=== PATIENT | female | born 1945 | race Caucasian/White ===

== ENCOUNTER 2022-03-12 15:03 | Outpatient (CLI) | payer MEDICARE, SELFPAY ==
[2022-03-12 17:34] LABS: Albumin* 4.4 g/dL (3.3-5.0); Chloride* 100 mmol/L (96-114); Potassium* 4.6 mmol/L (3.6-5.1); Sodium* 139 mmol/L (135-149)
[2022-03-12 17:37] LABS: Alanine Aminotransferase* 21 U/L (4-35); Alkaline Phosphatase* 63 U/L (40-150); Aspartate Amino Transferase* 31 U/L (12-35); Bilirubin Total* 0.6 mg/dL (0.1-1.5); Blood Urea Nitrogen* 25 mg/dL (7-30); Carbon Dioxide* 31 mmol/L (20-32); Creatinine* 1.3 mg/dL (0.5-1.5); Estimated Glomerular Filt Rate 43 ml/min; Glucose* 82 mg/dL (60-115); Total Protein* 6.9 g/dL (6.0-8.3)
[2022-03-12 17:38] LABS: Calcium* 10.2 mg/dL (8.4-10.6)
== END 2022-03-12 15:04 | disposition home or self-care (01) ==
PROVIDERS: PCP Family Medicine; Visit Provider Internal Medicine Cardiovascular Disease
DX: Z13.9 Encounter for screening, unspecified (principal)
CPT/HCPCS: 80053

== ENCOUNTER 2022-03-30 12:41 | Outpatient (CLI) | payer MEDICARE, SELFPAY ==
[2022-03-30 13:37] VITALS: BP 136/92; PULSE 89; RESP 16
--- NOTE | 2022-03-30 14:34 | PM.ST ---
Stress Test Note Date Date of test: 03/30/22 Providers Primary care provider: Hiren Thurston Stress test physician: Franklin Garces Stress Test Note Stress test ordered: Stress Echo Indication for test: Cardiomyopathy Results discussion: Very nice lady presents here for stress echo, after discussion the risks benefits side effects she would like to proceed pretest EKG shows normal sinus rhythm, poor R-wave progression is noted across the precordial leads, with some very mild ST wave depression of 0.5-1 mm noted inferiorly, and also laterally. Blood pressure elevated at 172/102. Patient is exercised for a total time following Wang protocol of 4 minutes 1 seconds, test is terminated because of shortness of breath and fatigue, during this test there is no specific ST wave changes suggestive of ischemia, there was no dysrhythmias noted, conditioning was felt to be moderate. Impression: Negative electrographic portion of stress echo, Follow up suggested: Await echo images these will be read by Cardiology, clinical correlation with these will be needed, she left this testing facility in good condition.
== END 2022-03-30 13:39 | disposition home or self-care (01) ==
PROVIDERS: PCP Family Medicine; Visit Provider Family Medicine
DX: I42.9 Cardiomyopathy, unspecified (principal)
CPT/HCPCS: 93016; 93325; 93351

== ENCOUNTER 2022-07-07 11:17 | Outpatient (CLI) | payer MEDICARE, SELFPAY | END 2022-07-07 11:18 | disposition home or self-care (01) | PROVIDERS: PCP Family Medicine; Visit Provider Family Medicine | DX: E66.9 Obesity, unspecified (principal); I10 Essential (primary) hypertension; E78.5 Hyperlipidemia, unspecified | CPT/HCPCS: 80061; 82607; 84439; 84443 ==

== ENCOUNTER 2023-05-24 12:52 | Outpatient (CLI) | payer MEDICARE, SELFPAY ==
--- NOTE | 2023-05-24 13:00 | CRLHL7_ITS ---
For Patients: As a result of the Century Cures Act, medical imaging exams and procedure reports are released immediately into your electronic medical record. You may view this report before your referring provider. If you have questions, please contact your health care provider. INDICATION: Low back pain. TECHNIQUE: Multiplanar multisequence noncontrast MR images of the lumbar spine. COMPARISON: None. FINDINGS: Mild leftward lumbar curvature. Straightened lumbar lordosis. No acute fracture. No T1 hypointense lesions. Normal conus terminates at L1. T12-L1: Moderate disc degeneration. Shallow posterior bulge. No spinal canal or neural foraminal narrowing. L1-2: Moderate disc degeneration. Shallow post disc bulge. Mild facet arthropathy. No spinal canal or neural foraminal narrowing. L2-3: Moderate disc degeneration and mild disc height loss. Posterior disc bulge. Moderately advanced facet arthropathy. Thickening ligamentum flavum. Bilateral facet effusions. Moderately severe spinal canal and right greater than left lateral recess stenosis. No neural foraminal narrowing. L3-4: Advanced disc degeneration and disc height loss. Mild vertebral body edema. Posterior disc bulging and endplate spondylitic ridging. Moderate facet arthropathy. Thickening of ligamentum flavum. Moderately severe spinal canal and right greater left lateral recess stenosis. Mild to moderate right without left neural foraminal narrowing. L4-5: Mild retrolisthesis. Advanced disc height loss. Posterior disc bulging and endplate spondylitic ridging. Moderate facet arthropathy. Bilateral facet effusions. Thickening ligamentum flavum. Moderate spinal canal narrowing. Severe left and moderately severe right lateral recess stenosis. [id number] left and mild right neural foraminal narrowing. L5-S1: Moderate disc degeneration. Shallow posterior disc bulge. Moderate facet arthropathy. No spinal canal narrowing. Mild left without right neural foraminal narrowing. Sacroiliac joint degenerative changes. IMPRESSION: 1. 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 2. At L3-4, moderately severe spinal canal and right greater than left lateral recess stenosis. Mild to moderate right neural foraminal narrowing. 3. At L4-5, moderate spinal canal narrowing. Severe left and moderately severe right lateral recess stenosis. Mild to moderate left neural foraminal narrowing. Dictated by Osman Bhandari MD @ 05/24/2023 3:42:20 PM (Electronically Signed)
== END 2023-05-24 12:53 | disposition home or self-care (01) ==
LOC: MRI 12:53
PROVIDERS: PCP Family Medicine; Visit Provider Physical Medicine & Rehabilitation
DX: M54.50 Low back pain, unspecified (principal); M48.061 Spinal stenosis, lumbar region without neurogenic claudication; M51.26 Other intervertebral disc displacement, lumbar region; M47.816 Spondylosis without myelopathy or radiculopathy, lumbar region
CPT/HCPCS: 72148

== ENCOUNTER 2023-10-12 11:20 | Outpatient (CLI) | payer MEDICARE, SELFPAY ==
--- NOTE | 2023-10-12 11:30 | CRLHL7_ITS ---
For Patients: As a result of the Century Cures Act, medical imaging exams and procedure reports are released immediately into your electronic medical record. You may view this report before your referring provider. If you have questions, please contact your health care provider. BILATERAL SCREENING MAMMOGRAM WITH COMPUTER-AIDED DETECTION AND TOMOSYNTHESIS TECHNIQUE: CC and MLO views were obtained. These mammographic images have been obtained using full-field digital technique. These mammographic images were interpreted with the benefit of computer-aided detection. Breast Tomosynthesis was used in this interpretation. COMPARISON FILM: 09/23/22, 09/22/21, 09/19/20. FINDINGS: The breasts are almost entirely fatty. IMPRESSION: There is no radiographic evidence for malignancy. ASSESSMENT: BI-RADS Category 1: Negative RECOMMENDATION: Routine screening mammogram in 1 year. A lay language report of this examination will be provided to the patient. Bryant Holt M.D. Diagnostic Radiologist [email or web address] SP/Dictated by: Bryant Holt MD @ 10/17/2023 10:27:00 AM (Electronically Signed)
== END 2023-10-12 11:21 | disposition home or self-care (01) ==
LOC: MAMMO 11:21
PROVIDERS: PCP Family Medicine; Visit Provider Family Medicine
DX: Z12.31 Encounter for screening mammogram for malignant neoplasm of breast (principal)
CPT/HCPCS: 77063; 77067

== ENCOUNTER 2023-10-14 11:39 | Outpatient (CLI) | payer MEDICARE, SELFPAY | END 2023-10-14 11:40 | disposition home or self-care (01) | PROVIDERS: PCP Family Medicine; Visit Provider Family Medicine | DX: I10 Essential (primary) hypertension (principal); E78.5 Hyperlipidemia, unspecified; Z13.0 Encounter for screening for diseases of the blood and blood-forming organs and certain disorders involving the immune mechanism | CPT/HCPCS: 80048; 80061 ==

== ENCOUNTER 2024-12-27 10:11 | Outpatient (CLI) | payer MEDICARE, SELFPAY ==
--- NOTE | 2024-12-27 10:15 | CRLHL7_ITS ---
For Patients: As a result of the Century Cures Act, medical imaging exams and procedure reports are released immediately into your electronic medical record. You may view this report before your referring provider. If you have questions, please contact your health care provider. INDICATION: BILATERAL SCREENING MAMMOGRAM, ASYMPTOMATIC 79 Y/O FEMALE COMPARISON: 10/12/2023, 09/23/2022, 09/22/2021 TECHNIQUE: Digital mammogram in CC and MLO projections including computer-aided detection (CAD) and tomosynthesis. BREAST COMPOSITION: There are scattered areas of fibroglandular density. FINDINGS: No suspicious findings. ASSESSMENT: BI-RADS 1 Negative RECOMMENDATION: Annual screening mammogram. A lay language report of this examination will be provided to the patient. Dictated by: Bryant Holt MD @ 12/27/2024 11:17:30 (Electronically Signed)
== END 2024-12-27 10:12 | disposition home or self-care (01) ==
LOC: MAMMO 10:12
PROVIDERS: PCP Family Medicine; Visit Provider Family Medicine
DX: Z12.31 Encounter for screening mammogram for malignant neoplasm of breast (principal)
CPT/HCPCS: 77063; 77067

== ENCOUNTER 2025-01-23 12:27 | Outpatient (CLI) | payer MEDICARE, SELFPAY ==
[2025-01-23 14:11] LABS: Chloride* 102 mmol/L (96-114)
[2025-01-23 14:12] LABS: Potassium* 4.0 mmol/L (3.6-5.1); Sodium* 138 mmol/L (135-149)
[2025-01-23 14:14] LABS: Blood Urea Nitrogen* 19 mg/dL (7-30); Creatinine* 1.1 mg/dL (0.5-1.5); Estimated Glomerular Filt Rate 52 ml/min
[2025-01-23 14:15] LABS: Anion Gap 6 mEq/L (7-15); Calcium* 9.4 mg/dL (8.4-10.6); Carbon Dioxide* 30 mmol/L (20-32); Glucose* 116 mg/dL (60-115)
== END 2025-01-23 12:28 | disposition home or self-care (01) ==
LOC: NPINS 12:28
PROVIDERS: PCP Family Medicine; Visit Provider Internal Medicine Cardiovascular Disease
DX: I50.32 Chronic diastolic (congestive) heart failure (principal)
CPT/HCPCS: 80048

== ENCOUNTER 2025-02-25 13:22 | Outpatient (CLI) | payer MEDICARE, SELFPAY ==
[2025-02-25 21:59] LABS: Chloride* 96 mmol/L (96-114); Potassium* 4.2 mmol/L (3.6-5.1)
[2025-02-25 22:02] LABS: Blood Urea Nitrogen* 26 mg/dL (7-30); Calcium* 9.6 mg/dL (8.4-10.6); Carbon Dioxide* 36 mmol/L (20-32); Creatinine* 1.2 mg/dL (0.5-1.5); Estimated Glomerular Filt Rate 47 ml/min; Glucose* 89 mg/dL (60-115)
[2025-02-25 22:24] LABS: NT Pro B Type NatriureticPept* 1290 pg/mL (See Note)
[2025-02-25 23:11] LABS: Sodium* 143 mmol/L (135-149)
[2025-02-25 23:15] LABS: Anion Gap 11 mEq/L (7-15)
== END 2025-02-25 13:23 | disposition home or self-care (01) ==
PROVIDERS: PCP Family Medicine; Visit Provider Nurse Practitioner Acute Care
DX: I27.22 Pulmonary hypertension due to left heart disease (principal)
CPT/HCPCS: 80048; 83880